=== PATIENT | male | born 1950 | race Caucasian/White ===

== ENCOUNTER 2017-08-25 15:01 | Observation (INO) | payer MEDICARE ==
--- NOTE | 2017-08-25 15:25 | CT ---
HEAD CT NONCONTRAST: Date: 08/25/17 CLINICAL HISTORY: Left facial droop, slurred speech. FINDINGS: There is white matter hypoattenuation involving subcortical aspect of the left temporoparietal lobe. There is hypodensity of the posterior left frontal lobe within the left centrum semiovale which is sm all in size. No intracranial hemorrhage, mass effect, or midline shift. Ventricular system is of appr opriate size. IMPRESSION: Areas of age-indeterminate ischemia as discussed above. There is no intracranial hemorrhage or mass e ffect. Telephone call with findings placed to ER physician, Sg Olvera, at 1515 hours on 08/25/17. CODE CR. POS: STEVEN
[2017-08-25 15:42] LABS: #Eosinphils 0.1 thou/uL (0.0-0.7); #Lymphocytes 0.8 thou/uL (1.20-3.40); #Monocytes 0.5 thou/uL (0.11-0.59); #Neutrophils 4.8 thou/uL (1.40-6.50); %Basophils 0.5 % (0.0-1.0); %Eosinophils 1.9 % (0.0-10.0); %Monocytes 7.8 % (0.0-10.0); %Neutrophils 76.8 % (42.0-75.0); Hemoglobin 11.5 g/dL (14.0-18.0); Mean Corpuscular HGB CONC 35.2 g/dL (32.0-36.0); Mean Corpuscular Hemoglobin 32.9 pg (27.0-31.0); Mean Corpuscular Volume 93.6 fl (80.0-94.0); Platelet Count 223 thou/uL (130-400); RBC Distribution Width 11.9 % (11.5-14.5); Red Blood Cell (RBC) Count 3.48 mill/uL (4.70-6.10); White Blood Cell (WBC) Count 6.3 thou/uL (4.8-10.8)
[2017-08-25] MEDS ORDERED: metroNIDAZOLE 500 MG/100 ML BAG ONE (15:43)
[2017-08-25] MEDS ORDERED: metroNIDAZOLE 500 MG in Premix Bag 1 BAG IVPB ONE (15:45)
--- NOTE | 2017-08-25 15:47 | RAD ---
CHEST ONE VIEW 08/25/17 HISTORY: Chest pain. COMPARISON: 11/04/15. FINDINGS: The cardiac silhouette is magnified by projection. Pulmonary vasculature is unremarkable. Mediastinum is midline. There is no confluent air space consolidation or evidence of pneumothorax. Postoperative changes of the left acromioclavicular joint are apparent. IMPRESSION: No active cardiopulmonary abnormalities are demonstrated. POS: H
[2017-08-25 16:02] LABS: INR-International Normal Ratio 1.1; Prothrombin Time 14.1 SEC (12.0-14.7)
[2017-08-25 16:06] LABS: ALT (SGPT) 11 U/L (8-55); AST (SGOT) 18 U/L (5-34); Albumin 3.9 g/dL (3.4-4.8); Alkaline Phosphatase 124 U/L (40-150); Anion Gap 15 mmol/L (10-20); BUN (Urea Nitrogen) 69 mg/dL (8.4-25.7); Bilirubin, Total 0.3 mg/dL (0.2-1.2); CK (CPK) 185 U/L (30-200); Calc. Creatinine Clearance 0 mL/min (70-130); Calcium 8.8 mg/dL (7.8-10.44); Carbon Dioxide 23 mmol/L (23-31); Chloride 102 mmol/L (98-107); Estimated GFR-MDRD 16; Globulin 3.6 g/dL (2.4-3.5); Glucose 168 mg/dL (80-115); Lipase 54 U/L (8-78); Potassium 4.7 mmol/L (3.5-5.1); Protein, Total 7.5 g/dL (5.8-8.1); Sodium 135 mmol/L (136-145)
[2017-08-25 16:07] LABS: Acetaminophen Less than 6.0 mcg/mL (10.0-30.0); Alcohol Less than 10 mg/dL (Less than 10); Salicylate Less than 8.0 mg/dL (15.0-30.0)
[2017-08-25 16:08] LABS: CKMB 1.9 ng/mL (0-6.6); Troponin I 0.012 ng/mL (< 0.028)
[2017-08-25 16:10] LABS: Bilirubin Negative (Negative); Blood, Urine Trace (Negative); Clarity CLEAR (Clear); Glucose, Urine (Dipstick) 100 mg/dL (Negative); Leukocyte Negative (Negative); Nitrite Negative (Negative); Protein, Urine (Dipstick) 300 mg/dL (Neg-Trace); Specific Gravity, Urine 1.017 (1.002-1.036); Urobilinogen 0.2 mg/dL (0.2-1.0)
[2017-08-25 16:12] LABS: Bacteria/HPF None Seen HPF (None Seen); Hyaline Casts/LPF 0-3 HYALINE CAST LPF (0-3 Hyaline); RBC/HPF 0-3 HPF (0-3); Squamous Epithelial None Seen HPF (0-3); WBC/HPF 0-3 HPF (0-3)
[2017-08-25 16:19] LABS: Benzodiazepine Screen Detected (NotDetected); Medtox Reader # READER 1
[2017-08-25 16:20] LABS: Amphetamine Not Detected (NotDetected); Barbiturates Screen Not Detected (NotDetected); Cocaine Metabolite Screen Not Detected (NotDetected); Medtox Control Line Valid? VALID (VALID); Methadone Not Detected (NotDetected); Methamphetamine Not Detected (NotDetected); Opiate Screen Not Detected (NotDetected); Oxycodone Screen Not Detected (NotDetected); Phencyclidine (PCP) Not Detected (NotDetected); THC/Cannabinoid Screen Not Detected (NotDetected); Tricyclic Screen Not Detected (NotDetected)
--- NOTE | 2017-08-25 16:34 | CT ---
CT ABDOMEN AND PELVIS NONCONTRAST 08/25/17 HISTORY: Bilateral flank pain. COMPARISON: 06/24/14. FINDINGS: Each renal collecting system, ureter, and the urinary bladder are decompressed. Tiny calcifications a ssociated with pyramids of the left kidney are stable. No urinary tract calcifications are reliably d emonstrated. IV contrast was reportedly withheld because of diminished renal function. Oral contrast was not admin istered. Lack of contrast limits evaluation for other abnormalities. There is subtle stranding within the fat immediately surrounding the kidneys, similar in appearance to the previous exam. There is ca lcification of the arterial structures. Degenerative changes involve the hips and lumbar spine. calc ification associated with a very small splenic artery aneurysm is stable. IMPRESSION: 1. No CT evidence of urinary tract obstruction or calcification. Tiny left renal pyramidal calci fications are stable. 2. Atherosclerosis. POS: STEVEN
[2017-08-25 19:04] LABS: Troponin I 0.017 ng/mL (< 0.028)
[2017-08-25] MEDS ORDERED: Ondansetron ODT 4 MG TAB SL PRN (19:17)
[2017-08-25] MEDS ORDERED: Sodium Chloride 0.9% 1,000 ML IV SCH (19:17)
[2017-08-25] MEDS ORDERED: Ondansetron HCl/PF 4 MG/2 ML Vial IVP PRN ×2 (19:17→22:22)
[2017-08-25] MEDS ORDERED: Aspirin 325 MG TAB PO SCH (20:00)
--- NOTE | 2017-08-25 20:35 | CON ---
DATE OF CONSULTATION: 08/25/2017 REASON FOR CONSULTATION: Stage IV chronic kidney disease. HISTORY OF PRESENT ILLNESS: This is a 66-year-old gentleman who presented with weakness and decreasi ng urine output for the last 2-3 days. His baseline creatinine has been around 2.7 to 3.4 since the last one year and progressive decrease in renal function attributed to diabetic nephropathy and hyper tension. The patient has no history of NSAID use. Denies any nausea, vomiting or diarrhea at this t shayna. PAST MEDICAL HISTORY: Significant for hypertension, diabetes mellitus, CKD stage IV, history of acut e kidney injury, history of right shoulder surgery, right ankle surgery, left wrist surgery, left conor t surgery. HOME MEDICATIONS: Reviewed. HOSPITAL MEDICATIONS: List reviewed. ALLERGIES: Reviewed. REVIEW OF SYSTEMS: A 15-point review of systems was performed and was negative except for positives noted above. GENERAL: Weakness- HEAD: Headache- NECK: No swelling or lumps. NOSE: No epistaxis or discharge. EYES: No diplopia or pain. RESPIRATORY: Dyspnea- CARDIOVASCULAR: Chest pain- GASTROINTESTINAL: Nausea- /CONVEYOR MECHANIC: Hematuria- MUSCULOSKELETAL: No joint pain. NEUROPSYCHIATIC SYSTEMS: No suicidal ideation. No ideation. SKIN: Denies any rash or ulcer. CONSTITUTIONAL: No fever or chills. PHYSICAL EXAMINATION: GENERAL: Patient is awake, alert. VITAL SIGNS: Afebrile, pulse 80, breathing at 16, blood pressure was 140/80. GENERAL APPEARANCE AND MENTAL STATUS: Fair. HEAD/NECK: Normocephalic. Atraumatic. EYES: EOMI. No deformity. EARS: Clear. No ulcers. NOSE: Intact. No lesions. MOUTH: Clear. No discharge. THROAT: Clear. No exudate. LUNGS: Clear. No crackles. CARDIAC: S1, S2. No rub. ABDOMEN: Benign. BS+. GENITALIA/RECTUM: Cross absent. BACK/EXTREMITIES: Edema 0+ Ulcer- NEUROLOGICAL: Alert and motor intact. SKIN: Rash- Bruise- LYMPHATICS: Edema- Ulcer- LABORATORY: Creatinine 3.8. ASSESSMENT AND RECOMMENDATIONS: 1. Chronic kidney disease stage IV with acute kidney injury most likely due to progressive diabetic disease. No urgent indication for dialysis. Continue gentle hydration. 2. Anemia, stable. 3. Medications based on glomerular filtration rate are appropriate. I will follow this patient's re nal function closely. Imaging studies did not show any hydronephrosis.
[2017-08-25 22:19] LABS: Troponin I 0.012 ng/mL (< 0.028)
[2017-08-25] MEDS ORDERED: hydrALAZINE 20 MG/ML VIAL SLOW IVP PRN (22:22)
[2017-08-25] MEDS ORDERED: Acetaminophen 325 MG TAB PO PRN (22:22)
[2017-08-25] MEDS ORDERED: Dextrose 5% in Water 1,000 ML IV PRN (22:22)
[2017-08-25] MEDS ORDERED: Dextrose 50% Abboject 50 ML SYRINGE SLOW IVP PRN (22:22)
[2017-08-25] MEDS ORDERED: HumaLOG 300 UNITS/3 ML VIAL SC PRN (22:22)
[2017-08-25] MEDS ORDERED: Bisacodyl 5 MG TAB PO PRN (22:22)
[2017-08-25] MEDS ORDERED: HYDROcodone/Acetaminophen 5/325 mg Tablet PO PRN (22:22)
[2017-08-25] MEDS ORDERED: Nitroglycerin 0.4 MG TAB (25 Tab Bottle) SL PRN (22:22)
[2017-08-25 22:48] VITALS: BMI 31.0
--- NOTE | 2017-08-25 23:31 | ULT ---
RENAL ULTRASOUND 08/25/17 CLINICAL HISTORY: Renal failure. Reference is made to 06/24/14 renal ultrasound. FINDINGS: Right kidney demonstrates a length of 12 cm is demonstrated and left renal length of 13.7 cm. No over t hydronephrosis or suspicious renal lesion. There is punctate increased echogenicity of the left kid anthony which may be on the basis of small calcification. The urinary bladder is grossly unremarkable. IMPRESSION: No overt hydronephrosis of either kidney. Punctate increased echogenicity of the left kidney may relate to renal calculus formation. POS: [facility]
[2017-08-25] MEDS: Sodium Chloride 0.9% 1,000 ML IV SCH (23:35)
[2017-08-26 01:13] LABS: Troponin I 0.011 ng/mL (< 0.028)
--- NOTE | 2017-08-26 02:03 | HP ---
CHIEF COMPLAINT: Slurred speech and some left hand weakness, some chest pain and some generalized we akness and decreased urine output. HISTORY OF PRESENT ILLNESS: This is a pleasant 66-year-old pleasant gentleman who is a poor historia n, comes into the hospital because the noticed that he had started slurring of speech about an h our prior to EMS arrival. He also was noted to have low, EMS recorded a systolic blood pressure of 8 8 on the scene. Patient also complained of some chest pain and some kidney pain. He also complained of some decreased urine output. Initial evaluation in the ER showed that the CT scan of the head sh owed area of indeterminate ischemia and the creatinine has gone up to 3.8. His blood pressure came u p with IV hydration. He has been admitted for further evaluation and treatment of all the above-ment ioned complaints. He denies any fever or chills. He is a very poor historian and there is no family in the room and most of the history has been obtained from the chart and old records from the [facility]. PAST MEDICAL HISTORY: Significant for hypertension, dyslipidemia, diabetes, chronic intermittent chelsey n, insomnia. PAST SURGICAL HISTORY: Right shoulder, left wrist, left shoulder, left foot surgery. SOCIAL HISTORY: Patient is . Surrogate decision maker is his , uses a can of chew tobacc o per week for at least 30 years. Alcohol is rare. FAMILY HISTORY: Significant for father who had lung cancer, mother who had unknown type of cancer. ALLERGIES: No known drug allergies. MEDICATIONS: Please see MAR. REVIEW OF SYSTEMS: Significant for slurred speech, chest pain, left arm weakness. No nausea, vomiti ng, no diarrhea, dysuria, or polyuria. No memory or mood changes. No neck pain, no fever, no chills , no headache, no eye pain. PHYSICAL EXAMINATION: VITAL SIGNS: Blood pressure 149/80, pulse is 80, respirations 18, satting 97% on room air. GENERAL: Patient is lying in bed, complains of some generalized weakness. HEENT: Pupils are equally round, react to light. Extraocular movements intact. NECK: No JVD, no meningeal signs. CHEST: Breath sounds. There are no rales or rhonchi. HEART: S1, S2. No murmurs or gallops. ABDOMEN: Soft, obese. EXTREMITIES: No cyanosis, clubbing, or edema. NEUROLOGIC: Patient has right-sided facial droop which is old. Patient again has speech right now. His left hand shows less strength and strength in the right and is 5/5. PSYCHIATRIC: Patient has some overall weakness and right leg more than left. SKIN: Warm and dry. LABORATORY DATA: EKG shows normal sinus rhythm at 80, conduction normal, nonspecific ST-T wave martinez es. CT scan of the head as mentioned earlier shows area of indeterminate ischemia. Chest x-ray, no acute abnormality. Abdominal CT without acute abnormality. Patient had a cardiac catheterization in 2016, which showed EF of 55%. Lactic acid is 1.6. WBC count is 6.3, hemoglobin is 11.5, potassium is 4.7, creatinine is 3.8. UA is negative. UDS shows benzodiazepines. ASSESSMENT AND PLAN: 1. Slurred speech with some left hand weakness, which appears to be new. According to the patient, we will do MRI of the brain, carotid Doppler and echocardiogram. We will trend troponins. We will c ontinue aspirin and Plavix from home. We will monitor these imaging studies and call Neurology if ne eded. We will get PT, OT. The patient does not have any speech or swallowing problems right now. W e will get speech evaluation anyway to make right recommendations about the diet. 2. Acute renal failure on chronic kidney disease. Dr. Dubose has already seen the patient in the [facility] room and has recommended gentle hydration. 3. Anemia, stable. 4. Coronary artery disease, status post stent. 5. Hypertension, stable. 6. Diabetes mellitus, put the patient on insulin sliding scale. 7. Hyperlipidemia, stable episode of hypertension. Blood cultures have been ordered in the emergenc y room. We will start antibiotic therapy if needed. 8. Sequential compression devices for deep venous thrombosis prophylaxis. I will work with consulta nts further caring for the patient.
[2017-08-26 04:54] VITALS: TEMP 98.2
[2017-08-26 05:20] LABS: #Eosinphils 0.1 thou/uL (0.0-0.7); #Lymphocytes 1.1 thou/uL (1.20-3.40); #Monocytes 0.5 thou/uL (0.11-0.59); #Neutrophils 2.6 thou/uL (1.40-6.50); %Basophils 0.4 % (0.0-1.0); %Eosinophils 2.6 % (0.0-10.0); %Lymphocytes 25.2 % (21.0-51.0); %Monocytes 11.7 % (0.0-10.0); %Neutrophils 60.2 % (42.0-75.0); Hemoglobin 10.3 g/dL (14.0-18.0); Mean Corpuscular HGB CONC 33.6 g/dL (32.0-36.0); Mean Corpuscular Hemoglobin 31.6 pg (27.0-31.0); Mean Platelet Volume 9.1 fL (7.4-10.4); Platelet Count 198 thou/uL (130-400); RBC Distribution Width 11.9 % (11.5-14.5); Red Blood Cell (RBC) Count 3.27 mill/uL (4.70-6.10); White Blood Cell (WBC) Count 4.3 thou/uL (4.8-10.8)
[2017-08-26 05:39] LABS: Troponin I 0.024 ng/mL (< 0.028)
[2017-08-26 05:40] LABS: Anion Gap 13 mmol/L (10-20); BUN (Urea Nitrogen) 62 mg/dL (8.4-25.7); Calc. Creatinine Clearance 31 mL/min (70-130); Calcium 8.7 mg/dL (7.8-10.44); Carbon Dioxide 23 mmol/L (23-31); Chloride 106 mmol/L (98-107); Cholesterol 274 mg/dl (< 200 Desired); Estimated GFR-MDRD 18; Glucose 127 mg/dL (80-115); HDL Cholesterol 25 mg/dL (>60 Neg Risk); LDL Cholesterol, Calculated 181 mg/dL; Potassium 4.4 mmol/L (3.5-5.1); Sodium 138 mmol/L (136-145); Triglycerides 338 mg/dL (Less than 150)
[2017-08-26] MEDS ORDERED: Ondansetron ODT 4 MG TAB PO PRN (08:11)
[2017-08-26] MEDS ORDERED: Chloraseptic Spray 180 ml Bottle PO PRN (08:11)
[2017-08-26] MEDS ORDERED: Loperamide HCl 2 MG CAP PO PRN (08:11)
[2017-08-26] MEDS ORDERED: Loratadine 10 MG TAB PO PRN (08:11)
[2017-08-26] MEDS ORDERED: Temazepam 15 MG CAP PO PRN (08:11)
[2017-08-26] MEDS ORDERED: Eucerin (Mineral Oil/Petrolatum,White) 30 gm Jar TOP PRN (08:11)
[2017-08-26] MEDS ORDERED: Diabetic Tussin 200 MG/10 ML UDCUP PO PRN (08:11)
[2017-08-26] MEDS ORDERED: Mag-Al 1200 mg/1200 mg/30 ML UDCUP PO PRN (08:11)
[2017-08-26] MEDS ORDERED: Sodium Chloride 0.65% Nasal 44 ML BOT EA NARE PRN (08:11)
--- NOTE | 2017-08-26 08:52 | ULT ---
BILATERAL CAROTID DUPLEX ULTRASOUND INCLUDING COLOR AND SPECTRAL DOPPLER IMAGING: Date: 08/26/17 HISTORY: 66-year-old male with syncope. FINDINGS: There is visual plaque in the origin of the left ICA. PSV Right ICA: 77 cm/sec EDV: 31 cm/sec ICA/CCA Ratio: 1.0 PSV Left ICA: 85 cm/sec EDV: 16 cm/sec ICA/CCA Ratio: 1.3 Vertebral flow is antegrade. IMPRESSION: No hemodynamically significant stenosis. Visual plaque in the proximal left ICA, evidence for left ca rotid artery atherosclerotic vascular disease. POS: OFF
[2017-08-26] MEDS ORDERED: Famotidine 20 MG TAB PO SCH (09:00)
[2017-08-26] MEDS ORDERED: Aspirin 81 mg Enteric Coated Tablet PO SCH (09:00)
[2017-08-26] MEDS ORDERED: Clopidogrel Bisulfate 75 MG TAB PO SCH (09:00)
--- NOTE | 2017-08-26 09:04 | MRI ---
MRI BRAIN NONCONTRAST: CLINICAL HISTORY: Stroke. FINDINGS: There is no acute territorial infarction, intracranial mass effect, midline shift, or ventriculomegal y. There is mild to moderate chronic microvascular ischemic disease. No intracranial hemorrhagic weinstein sceptibility. IMPRESSION: 1. No acute intracranial abnormality. 2. Mild to moderate chronic microvascular ischemic disease. POS: STEVEN
--- NOTE | 2017-08-26 10:48 | DIS ---
PRIMARY CARE PHYSICIAN: Dr. Adonis Abrams. DATE OF ADMISSION: 08/25/2017 DATE OF DISCHARGE: 08/26/2017 DISCHARGE DISPOSITION: Home. PRIMARY DISCHARGE DIAGNOSES: 1. Acute on chronic kidney failure, baseline chronic kidney disease stage 4. 2. Cerebrovascular accident ruled out. SECONDARY DISCHARGE DIAGNOSES: Chronic kidney disease stage 4, anemia of renal disease, diabetes type 2, hypertension, dyslipidemia, and obesity with BMI 31. PRIMARY PROCEDURE/OPERATION: None. RADIOLOGICAL INVESTIGATION: Chest x-ray was normal. CT brain was suspected for age indeterminate ischemia in the left temporoparietal lobe. Renal ultrasound showed renal calcification in the left kidney. Abdomen and pelvis CT scan showed calcification in the left renal pyramid. MRI brain showed chronic ischemic white matter changes, but no acute process. Carotid Doppler study negative for any stenosis. SIGNIFICANT LABORATORY DATA: WBC 4.3, hemoglobin 10.3, platelets 198. INR 1.1. Sodium 138, potassium 4.4, BUN 62, creatinine 3.52, calcium 8.7. Cardiac enzymes negative x4. Lactic acid 1.6, triglycerides 338, cholesterol 274, LDL 181, HDL 25, lipase 54. TSH 1.85. LFTs normal. BNP 14.7. Urinalysis normal. Urine drug screen negative. Serum drug screen negative. Blood culture negative. Influenza screen negative. DISCHARGE MEDICATIONS: Aspirin 81 mg p.o. daily, Coreg 6.25 mg p.o. b.i.d., Plavix 75 mg p.o. daily, diazepam 5 mg p.o. b.i.d. p.r.n., Benadryl 50 mg p.o. at bedtime p.r.n., Lasix 20 mg p.o. daily, Neurontin 300 mg p.o. t.i.d., Lopid 600 mg p.o. b.i.d., Levemir insulin 25 units subcu b.i.d. Lipitor 10 mg po daily CONTRAINDICATIONS: None. CODE STATUS: FULL CODE. INPATIENT CONSULTANTS: Dr. Dubose was consulted while in hospital. TEST RESULTS PENDING ON DISCHARGE: None. ALLERGIES: No known drug allergies. DISCHARGE PLAN: Post hospital, the patient will follow up with primary care physician. HOSPITAL COURSE: The patient is a 66-year-old male with the above mentioned medical problems, who was brought to the emergency room with vague history. He had some slurred speech, left-sided weakness on the upper extremity only and some vague chest pain. He was feeling generalized weak. He was also hypotensive at the scene. At this time, his creatinine was slightly elevated more than his baseline level. Dr. Dubose saw this patient, he was not needing any dialysis. He was given IV fluids. His creatinine started improving to baseline. He remained hemodynamically stable. We resumed his home medication. We did CT brain initially with suspected ischemic changes seen in the temporoparietal lobe in the left side, but MRI did not show that above findings. Carotid Doppler was negative for any stenosis. Renal ultrasound and CT abdomen was unremarkable. This patient did not wanted to go to rehabilitation or skilled placement. He rather wanted to go home. He is feeling perfectly fine and up to his normal level. Dietary instructions given. Healthy lifestyle measures discussed with the patient. Plan and test result discussed with family. For high LDL I added lipitor on discharge along with lopid. PHYSICAL EXAMINATION: The patient is seen and examined at bedside. VITAL SIGNS: Today, temperature 98.2, pulse 74, respiratory rate 18, saturation 94%, blood pressure 139/78, and weight 228 pounds. GENERAL: The patient is currently alert, awake, in no obvious acute distress. HEAD: Normocephalic, atraumatic. LUNGS: Clear to auscultation without any rhonchi. NECK: No JVD, no thyromegaly. Supple. CARDIAC: S1 and S2, regular, without any murmurs. ABDOMEN: Soft and benign without any tenderness. EXTREMITIES: No edema. NEUROLOGIC: Nonfocal examination. The patient is medically stable for discharge today. [facility]
[2017-08-26 11:26] VITALS: BP 143/82
[2017-08-26] MEDS: Sodium Chloride 0.9% 1,000 ML IV SCH (11:38)
--- NOTE | 2017-08-26 14:01 | PRG ---
DATE OF SERVICE: 08/26/2017 SUBJECTIVE: This is a 66-year-old gentleman being seen for acute kidney injury. The patient denies any nausea, vomiting, or chest pain. PHYSICAL EXAMINATION: GENERAL: Patient is awake, alert. VITAL SIGNS: Afebrile, pulse 75, breathing 16, blood pressure 140/70. OBJECTIVE: See above. Awake, alert, in no acute distress. GENERAL APPEARANCE AND MENTAL STATUS: Fair. HEAD/NECK: Normocephalic. Atraumatic. EYES: EOMI. No deformity. EARS: Clear. No ulcers. NOSE: Intact. No lesions. MOUTH: Clear. No discharge. THROAT: Clear. No exudate. LUNGS: Clear. No crackles. CARDIAC: S1, S2. No rub. ABDOMEN: Benign. BS+. GENITALIA/RECTUM: Cross absent. BACK/EXTREMITIES: Edema 0+ Ulcer- NEUROLOGICAL: Alert and motor intact. SKIN: Rash- Bruise- LYMPHATICS: Edema- Ulcer- LABORATORY: Hemoglobin 10.3, creatinine 3.5. ASSESSMENT AND RECOMMENDATIONS: 1. Chronic kidney disease stage 4, stable. 2. Hypertension, stable. 3. Metabolic acidosis, stable. The patient was advised to follow up with Dr. Wick for preemptive vascular access.
[2017-08-26] MEDS ORDERED: Atorvastatin Calcium 40 MG TAB PO SCH (21:00)
--- NOTE | 2017-09-18 17:34 | EKG ---
Test Reason : Blood Pressure : / mmHG Vent. Rate : 080 BPM Atrial Rate : 080 BPM P-R Int : 190 ms QRS Dur : 102 ms QT Int : 388 ms P-R-T Axes : 028 011 025 degrees QTc Int : 447 ms Normal sinus rhythm Nonspecific ST abnormality Abnormal ECG Confirmed by SYLWIA ROMAN ([id number]), market editor IRIS LESLIE ([id number]) on 09/18/2017 5:33:28 PM Referred By: Confirmed By:SYLWIA ROMAN
== END 2017-08-26 12:19 | disposition home or self-care (01) ==
LOC: ERS 15:01 → 2SW 19:16
PROVIDERS: ADMIT Internal Medicine; ATTEND Internal Medicine
DX: E11.22 Type 2 diabetes mellitus with diabetic chronic kidney disease (principal); I12.9 Hypertensive chronic kidney disease with stage 1 through stage 4 chronic kidney disease, or unspecified chronic kidney disease; N18.4 Chronic kidney disease, stage 4 (severe); D63.1 Anemia in chronic kidney disease; E78.5 Hyperlipidemia, unspecified; E66.9 Obesity, unspecified; R47.81 Slurred speech; R53.1 Weakness; G89.29 Other chronic pain; G47.00 Insomnia, unspecified; F17.220 Nicotine dependence, chewing tobacco, uncomplicated; E87.2 Acidosis; Z68.31 Body mass index [BMI] 31.0-31.9, adult; Z79.4 Long term (current) use of insulin; Z79.02 Long term (current) use of antithrombotics/antiplatelets; Z79.82 Long term (current) use of aspirin; Z79.899 Other long term (current) drug therapy; Z98.890 Other specified postprocedural states
CPT/HCPCS: 70450; 70551; 71045; 74176; 76770; 80048; 80061; 80306; 80307; 82140; 82550; 82553; 82962; 83605; 83690; 83880; 84484 ×3; 85025; 85610; 85730; 87040; 87804 ×2; 93005; 93306; 93880; 96360; 96361 ×2; 96365; 97116; 97139 ×3; 97530; 99285; G0378; G8978; G8979; G8987; G8988; 36415; 36416; 80053; 81003; 81015; 84443

== ENCOUNTER 2019-01-05 16:14 | Observation (INO) | payer MEDICARE ==
[~2019-01-05 16:14] MED LIST: Iopamidol 370 76% 50 ML VIAL FS ONE
[2019-01-05 17:25] LABS: #Eosinphils 0.2 thou/uL (0.0-0.7); #Lymphocytes 1.8 thou/uL (1.20-3.40); #Monocytes 0.5 thou/uL (0.11-0.59); #Neutrophils 3.9 thou/uL (1.40-6.50); %Basophils 0.1 % (0.0-1.0); %Eosinophils 3.2 % (0.0-10.0); %Lymphocytes 28.7 % (21.0-51.0); %Monocytes 7.7 % (0.0-10.0); %Neutrophils 60.3 % (42.0-75.0); Hemoglobin 11.2 g/dL (14.0-18.0); Mean Corpuscular HGB CONC 35.8 g/dL (32.0-36.0); Mean Corpuscular Hemoglobin 33.6 pg (27.0-31.0); Mean Corpuscular Volume 93.9 fL (78.0-98.0); Mean Platelet Volume 9.9 fL (7.4-10.4); Platelet Count 174 thou/uL (130-400); RBC Distribution Width 13.2 % (11.5-14.5); Red Blood Cell (RBC) Count 3.33 mill/uL (4.70-6.10); White Blood Cell (WBC) Count 6.4 thou/uL (4.8-10.8)
[2019-01-05 17:51] LABS: ALT (SGPT) 10 U/L (8-55); AST (SGOT) 14 U/L (5-34); Albumin 4.2 g/dL (3.4-4.8); Alkaline Phosphatase 102 U/L (40-150); Anion Gap 15 mmol/L (10-20); BUN (Urea Nitrogen) 45 mg/dL (8.4-25.7); Bilirubin, Total 0.3 mg/dL (0.2-1.2); Calc. Creatinine Clearance 0 mL/min (70-130); Calcium 8.9 mg/dL (7.8-10.44); Carbon Dioxide 21 mmol/L (23-31); Chloride 104 mmol/L (98-107); Estimated GFR-MDRD 22; Globulin 2.7 g/dL (2.4-3.5); Glucose 206 mg/dL (80-115); Lipase 119 U/L (8-78); Protein, Total 6.9 g/dL (5.8-8.1); Sodium 135 mmol/L (136-145)
[2019-01-05 18:03] LABS: Bilirubin Negative (Negative); Blood, Urine Negative (Negative); Clarity CLEAR (Clear); Glucose, Urine (Dipstick) 250 mg/dL (Negative); Leukocyte Negative (Negative); Nitrite Negative (Negative); Protein, Urine (Dipstick) 100 mg/dL (Neg-Trace); Specific Gravity, Urine 1.017 (1.002-1.036); Urobilinogen 0.2 mg/dL (0.2-1.0); pH, Urine 5.5 (5.0-9.0)
[2019-01-05 18:17] LABS: Bacteria/HPF None Seen HPF (None Seen); Hyaline Casts/LPF NONE SEEN LPF (0-3 Hyaline); RBC/HPF 0-3 HPF (0-3); Squamous Epithelial 0-3 HPF (0-3); WBC/HPF 0-3 HPF (0-3)
--- NOTE | 2019-01-05 19:10 | CT ---
CT ABDOMEN AND PELVIS WITHOUT CONTRAST: 01/05/19 Multiple axial tomograms obtained through the abdomen and pelvis without IV enhancement. INDICATIONS: Abdominal pain. Chronic kidney disease. Comparison made to CT scan 08/25/17. FINDINGS: Linear atelectasis in the left lung base is stable from prior exam. Lung bases otherwise clear. Liver, spleen and pancreas unremarkable. Adrenal glands normal. Rather prominent perinephric stranding is again seen but is stable from prior exam. There is no hydro nephrosis. No evidence of renal calculus. Ureters are normal caliber. Urinary bladder mildly distended and unremarkable. Small bowel loops normal caliber. Appendix appears normal. Stool throughout the colon. Prostate is no t enlarged. Aorta normal caliber. IMPRESSION: No evidence of acute process. Prominent perinephric stranding is stable from prior exam. POS: [facility]EN
[2019-01-05] MEDS ORDERED: Sodium Chloride 0.9% 1,000 ML IV SCH (21:45)
[2019-01-05 21:57] VITALS: BMI 31.8
[2019-01-05] MEDS ORDERED: Diazepam 5 MG TAB PO PRN (22:37)
[2019-01-05] MEDS ORDERED: Acetaminophen 500 MG TAB PO SCH (22:45)
[2019-01-05] MEDS ORDERED: Carvedilol 6.25 MG TAB PO SCH (22:45)
[2019-01-05] MEDS ORDERED: Diazepam 5 MG TAB PO SCH (22:45)
[2019-01-05] MEDS ORDERED: Amlodipine 5 MG TAB PO SCH (22:45)
[2019-01-05] MEDS ORDERED: Atorvastatin Calcium 10 MG TAB PO SCH (23:00)
[2019-01-05] MEDS ORDERED: Senokot S 8.6-50 MG TAB PO PRN (23:16)
[2019-01-05] MEDS ORDERED: Acetaminophen 650 MG Suppository PR PRN (23:16)
[2019-01-05] MEDS ORDERED: Acetaminophen 325 MG TAB PO PRN (23:16)
--- NOTE | 2019-01-06 04:30 | HP ---
CHIEF COMPLAINT: Generalized abdominal pain. HISTORY OF PRESENT ILLNESS: Mr. Castillo is a 68-year-old man with complaints of generalized abdominal pain. He states he was seen by Dr. Elliott today and after going home, called Dr. Dubose with complaints of an episode of hematuria. He was advised to come into the emergency department for further evaluation. The patient on arrival to the ED was complaining of abdominal discomfort and bloating. He has had normal urinary output with no darkening of the urine or hematuria noted. The patient reports having an episode of hematuria several days ago. He reported feeling as though he may have passed a worm through his penis to the floor nurse. The patient states due to construction done in [employer] around his home, he believes he has been exposed along with other people in his community to worms in the ground, which he states have embedded themselves into his lower extremities. The patient attended with a friend who endorsed similar experience herself. Per patient, he has contacted multiple government officials and has only been successful contacting the [facility]. According to the patient, he saw his primary care physician for this and was advised to use [id number] remedies. The patient states he has tried using Piute-Krissy as well as Clorox on both of his feet. The patient was seen in the emergency department in [facility] and underwent laboratory studies which was notable for mildly elevated lipase of 119. His white cell count was normal. The patient underwent a CT of the abdomen and pelvis, which showed perinephric stranding that appeared stable compared to prior scan in August 2017. Otherwise, he had no acute abnormalities. The pancreas appeared unremarkable. The patient was, however, started on treatment and admitted for pancreatitis. REVIEW OF SYSTEMS: He denies having any fevers, chills, or sweats. Has not had any trouble with his breathing or chest pain. He states his pain is a generalized discomfort, which he states is a 6/10 in severity. Reports having normal bowel movements. Continues passing flatus. No urinary symptoms at present. All other review of systems are negative. PAST MEDICAL HISTORY: 1. Hypertension. 2. Type 2 diabetes mellitus. 3. Coronary artery disease. 4. Chronic kidney disease. PAST SURGICAL HISTORY: 1. Bilateral eye surgery. 2. Left shoulder surgery. 3. Left foot surgery. 4. Cardiac stents x2 in October 2017. 5. Toe amputation of left foot. 6. Left knee surgery. SOCIAL HISTORY: The patient denies any alcohol use. He chews tobacco. He denies any illicit drug use. ALLERGIES: NO KNOWN DRUG ALLERGIES. CURRENT MEDICATIONS: 1. Carvedilol. 2. Lasix. 3. Diazepam. 4. Clopidogrel. 5. Aspirin. 6. Amlodipine. 7. Atorvastatin. 8. Gabapentin. 9. Lopid. 10. Levemir. PHYSICAL EXAMINATION: GENERAL: The patient appears well developed, well nourished, and is in no acute distress. He does appear somewhat disheveled. HEENT: Normocephalic and atraumatic. Pupils are equal, round, and reactive to light. There is notable residual drooping of the right face, which he states is associated with previous stroke. Oropharynx is clear. NECK: Supple. LUNGS: Clear to auscultation bilaterally. CARDIAC: Regular rate and rhythm. ABDOMEN: Soft, nontender, nondistended. No guarding or rigidity. No renal angle tenderness. The patient does have a distended abdomen. EXTREMITIES: Without any edema or swelling. The patient has shown discoloration of the feet, which he describes being due to trying to get the worms out of his feet by using different home remedies. The patient has an appearance of dried mud on his feet. NEUROLOGIC: Oriented x3. SKIN: Without rash or jaundice. He does have what looks like dried brown mud on his bilateral feet. LABORATORY DATA: White blood count 6.4, hemoglobin 11.2, hematocrit 31.2, platelets 174. Sodium 135, potassium 5, BUN 45, creatinine 2.87, GFR 22, glucose 206, calcium 8.9, total bilirubin 0.3, AST 14, ALT 10, alkaline phosphatase 102, lipase 119. Urinalysis notable for 100 of protein and 250 of glucose, otherwise unremarkable. IMAGING DATA: CT of the abdomen and pelvis, 12/09/2018. No evidence of acute process. Prominent perinephric stranding, stable from prior exam. IMPRESSION AND PLAN: Mr. Castillo is a 68-year-old man, being admitted for management of the following. 1. Abdominal pain. The patient was said to have pancreatitis. However, CT of the abdomen and pelvis shows an unremarkable pancreas and generally unremarkable findings. He was noted to have perinephric stranding. Lipase mildly elevated at 119. We will continue to monitor LFTs and repeat lipase in the morning. The patient with minimal discomfort. He does have a good amount of stool and reports feeling bloated. We will try Bentyl to see if it helps to alleviate some of his discomfort. 2. Transient hematuria. The patient states he feels he may have passed a worm. Has not been formally diagnosed with any type of parasitic infection. States that it is due construction being done around his home. Unclear if there is any underlying psychiatric issues as the patient had mentioned to the nurse at the worms can hear him, speak about them. With regard to the hematuria, he is noted to have clear urine since coming into the hospital. The patient does have CKD and follows with Dr. Dubose. Consult has already been placed with Dr. Dubose. 3. Hypertension. Resume home medications and monitor blood pressure. 4. Coronary artery disease. Resume home medications. 5. Constipation. Senna 2 tablets by mouth twice daily as needed. 6. Gastrointestinal prophylaxis. 7. Deep venous thrombosis prophylaxis with mechanical SCDs. 8. Full code status. His surrogate decision maker is his , Veronica Castillo. The patient's case to be discussed with attending for further recommendations. Job ID: [id number]
[2019-01-06 05:51] LABS: #Eosinphils 0.2 thou/uL (0.0-0.7); #Lymphocytes 1.6 thou/uL (1.20-3.40); #Monocytes 0.5 thou/uL (0.11-0.59); #Neutrophils 2.8 thou/uL (1.40-6.50); %Basophils 0.7 % (0.0-1.0); %Lymphocytes 31.5 % (21.0-51.0); %Monocytes 9.3 % (0.0-10.0); %Neutrophils 54.4 % (42.0-75.0); Mean Corpuscular HGB CONC 34.2 g/dL (32.0-36.0); Mean Corpuscular Hemoglobin 32.6 pg (27.0-31.0); Mean Corpuscular Volume 95.3 fL (78.0-98.0); Mean Platelet Volume 9.9 fL (7.4-10.4); Platelet Count 159 thou/uL (130-400); RBC Distribution Width 13.1 % (11.5-14.5); Red Blood Cell (RBC) Count 3.38 mill/uL (4.70-6.10); White Blood Cell (WBC) Count 5.1 thou/uL (4.8-10.8)
[2019-01-06 06:16] LABS: ALT (SGPT) 8 U/L (8-55); AST (SGOT) 13 U/L (5-34); Albumin 3.7 g/dL (3.4-4.8); Alkaline Phosphatase 78 U/L (40-150); Anion Gap 14 mmol/L (10-20); BUN (Urea Nitrogen) 40 mg/dL (8.4-25.7); Bilirubin, Total 0.2 mg/dL (0.2-1.2); Calc. Creatinine Clearance 42 mL/min (70-130); Calcium 8.7 mg/dL (7.8-10.44); Carbon Dioxide 21 mmol/L (23-31); Chloride 108 mmol/L (98-107); Estimated GFR-MDRD 25; Globulin 2.8 g/dL (2.4-3.5); Glucose 95 mg/dL (80-115); Potassium 4.7 mmol/L (3.5-5.1); Protein, Total 6.5 g/dL (5.8-8.1); Sodium 138 mmol/L (136-145)
[2019-01-06] MEDS ORDERED: Famotidine/PF 20 mg/2ml Vial SLOW IVP SCH (09:00)
[2019-01-06] MEDS ORDERED: Clopidogrel Bisulfate 75 MG TAB PO SCH (09:00)
[2019-01-06] MEDS: Carvedilol 6.25 MG TAB PO SCH ×2 (10:02→17:32)
--- NOTE | 2019-01-06 15:13 | PDOC.EVN ---
Event Note - Event Note Event Note: I HAVE PERSONALLY SEEN PT AND REVIEWED CHART AND AGREED WITH PHYSICAL FINDING AND ASSESSMENT OF SENIOR SCIENTIST,
[2019-01-06 17:23] VITALS: BP 152/81; TEMP 97.8
[2019-01-06] MEDS ORDERED: Amlodipine 5 MG TAB PO SCH (21:00)
[2019-01-06] MEDS ORDERED: Atorvastatin Calcium 10 MG TAB PO SCH (21:00)
--- NOTE | 2019-01-06 22:19 | CON ---
DATE OF CONSULTATION: 01/06/2019 CONSULTING PHYSICIAN: GERMAN Ray REASON FOR CONSULT: Acute kidney injury. REASON FOR ADMISSION: Abdominal pain. HISTORY OF PRESENT ILLNESS: This is a 68-year-old male with history of CKD, hypertension, type 2 diabetes, came to the hospital with abdominal pain and is being evaluated. Nephrology consulted because of CKD and acute kidney injury. Follows up with Dr. Dubose. No nausea or vomiting. No chest pain. He is feeling better. PAST MEDICAL HISTORY: Positive for hypertension, diabetes, coronary artery disease, CKD. PAST SURGICAL HISTORY: Eye surgery, left shoulder surgery, left foot surgery, cardiac stents, toe amputation, left knee surgery. HOME MEDICATIONS: 1. Carvedilol. 2. Lasix. 3. Diazepam. 4. Clopidogrel. 5. Aspirin. 6. Amlodipine. 7. Atorvastatin. 8. Gabapentin. 9. Lopid. 10. . ALLERGIES: NO KNOWN DRUG ALLERGIES. SOCIAL HISTORY: No smoking, alcohol, or illicit drug abuse. FAMILY HISTORY: No history of kidney disease. REVIEW OF SYSTEMS: CONSTITUTIONAL: Negative for weight loss or gain, ability to conduct usual activities. SKIN: Negative for rash, itching. EYES: Negative for double vision, pain. ENT/MOUTH: Negative for nose bleeding, neck stiffness, pain, tenderness. CARDIOVASCULAR: Negative for palpitations, dyspnea on exertion, orthopnea. RESPIRATORY: Negative for shortness of breath, wheezing, cough, hemoptysis, fever or night sweats. GASTROINTESTINAL: Negative for poor appetite, abdominal pain, heartburn, nausea, vomiting, constipation, or diarrhea. GENITOURINARY: Negative for urgency, frequency, dysuria, nocturia. MUSCULOSKELETAL: Negative for pain, swelling. NEUROLOGIC/PSYCHIATRIC: Negative for anxiety, depression. ALLERGY/IMMUNOLOGIC: Negative for skin rash, bleeding tendency. PHYSICAL EXAMINATION: GENERAL: This is well-built male, in no apparent distress. VITAL SIGNS: Temperature 97.7, pulse 65, respiratory rate 18, blood pressure . HEENT: Atraumatic, normocephalic. Oral mucosa is moist. NECK: Supple. CV: S1, S2 heard. Rate and rhythm regular. RESPIRATORY: Clear. GI: Abdomen is soft. MUSCULOSKELETAL: 1+ edema. DERMATOLOGIC: No skin rash. NEUROLOGIC: Alert and awake. PSYCHIATRIC: Normal mood and affect. LABORATORY DATA: Potassium is 4.7, BUN is 40, and creatinine is 2.6. ASSESSMENT AND PLAN: 1. Acute kidney injury on chronic kidney, stage 4, better. 2. Hyponatremia. 3. Mild hyperkalemia. 4. Anemia. 5. Hypertension. Overall renal function is stable. Avoid nephrotoxins. We will continue to follow. Job ID: [id number]
== END 2019-01-06 19:10 | disposition home or self-care (01) ==
LOC: ERS 16:14 → 2SW 21:13
PROVIDERS: ADMIT Internal Medicine; ATTEND Internal Medicine
DX: R10.84 Generalized abdominal pain (principal); I12.9 Hypertensive chronic kidney disease with stage 1 through stage 4 chronic kidney disease, or unspecified chronic kidney disease; E11.22 Type 2 diabetes mellitus with diabetic chronic kidney disease; N17.9 Acute kidney failure, unspecified; N18.4 Chronic kidney disease, stage 4 (severe); R31.9 Hematuria, unspecified; I25.10 Atherosclerotic heart disease of native coronary artery without angina pectoris; F17.220 Nicotine dependence, chewing tobacco, uncomplicated; K59.00 Constipation, unspecified; D63.1 Anemia in chronic kidney disease; Z95.5 Presence of coronary angioplasty implant and graft; Z79.82 Long term (current) use of aspirin; Z79.899 Other long term (current) drug therapy; E87.5 Hyperkalemia; E87.1 Hypo-osmolality and hyponatremia
CPT/HCPCS: 74176; 80053 ×2; 82962; 83605; 83690 ×2; 85025 ×2; 94760; 96374; 97139; 99285; G0378 ×2; 36415; 36416; 81003; 81015; 96360; Q9967; S0028